=== PATIENT | female | born 1965 | race Caucasian/White ===

== ENCOUNTER → 2021-09-09 | Outpatient (CLI) | payer OTHER ==
[~2021-09-09] MED LIST: ADULT LOW DOSE81 MG; FIORICET 50-321 EACH PO; NORCO 5-325 TA1 EACH PO; ZOFRAN4 MG PO
== END ==
LOC: M.CT 14:05
PROVIDERS: ATTEND Nurse Practitioner
DX: Z13.6 Encounter for screening for cardiovascular disorders (principal); I25.10 Atherosclerotic heart disease of native coronary artery without angina pectoris

== ENCOUNTER → 2021-09-09 | Outpatient (CLI) | payer OTHER ==
--- NOTE | 2021-09-10 16:07 | TST ---
[place] [address] [employer] STRESS TEST Name: REINALDO FREEMAN Room: [facility]#: [id number] Admission: 09/09/21 Attend Phys: Seble Whitman Discharge: Date of : 69 Date of Service: 09/09/21 1517 Report #: [id number] THIS REPORT FOR: cc: Seble Phillips Jacqueline D. FNP Liston, Michael J. MD [facility] ~ cc: JASMIN Worthington, Marco Busby MD [facility] DATE OF SERVICE: 09/09/2021 STANDARD ANDREI PROTOCOL EXERCISE STRESS TEST REFERRING PHYSICIAN: Marco Busby MD [facility] PRIMARY CARE PROVIDER: JASMIN Worthington INDICATION: Chest pain, fatigue, palpitations and hypothyroidism. CARDIAC RISK FACTORS: Age 55 and family history of coronary artery disease. CARDIAC MEDICATIONS: None. The patient exercised per standard Andrei protocol for a total of 10 minutes and 20 seconds, achieving 101% of the age-predicted maximum heart rate and an energy expenditure of 12.33 METS. The patient denied any significant chest discomfort with exercise. Exercise was discontinued due to achievement of target heart rate. The resting heart rate was 76 beats per minute with a resting blood pressure of 108/78 mmHg. At peak exercise, the heart rate was 169 beats per minute with a peak stress blood pressure of 143/58 mmHg. In recovery, the heart rate was 102 beats per minute with a recovery blood pressure of 112/65 mmHg. The baseline 12-lead EKG shows sinus rhythm without significant ST segment or T-wave abnormality. At the beginning of exercise, the patient exhibited T-wave flattening and ultimately T-wave inversion with [address] segment depression noted in the anterolateral and inferior leads. At peak exercise, the patient has T-wave flattening and very subtle horizontal to downsloping ST segment depression in the anterolateral leads. During recovery, the patient developed more profound T-wave inversion diffusely with [address] segment depression that persisted 7 minutes into recovery. IMPRESSION: 1. Clinical response, nonischemic. The patient exhibited good exercise tolerance. 2. EKG response, appears ischemic. This [place] [address] [employer] STRESS TEST Name: REINALDO FREEMAN Room: [facility]#: [id number] Admission: 09/09/21 Attend Phys: Seble Whitman Discharge: Date of : 69 Date of Service: 09/09/21 1517 Report #: [id number] Consider additional stress testing with alternate imaging modality if clinically indicated. <ELECTRONICALLY SIGNED> By: Estiven Smallwood MD, [facility] 09/10/21 1607 1517 [id number] Estiven Smallwood MD, FACC /nt
== END ==
LOC: M.CRD 14:17
PROVIDERS: ATTEND Nurse Practitioner
DX: R07.89 Other chest pain (principal); E78.5 Hyperlipidemia, unspecified; Z82.49 Family history of ischemic heart disease and other diseases of the circulatory system

== ENCOUNTER → 2021-10-12 | Outpatient (CLI) | payer OTHER ==
[~2021-10-12] VITALS: Ht 157.5 cm; Wt 61.2 kg
[~2021-10-12] MED LIST changes: +LEVO-T75 MCG PO; +VITAMIN B-3 PO
[2021-10-12 08:09] LABS: CREATININE 0.8 mg/dL (0.6-1.3)
[2021-10-12 08:20] VITALS: BP 129/69
[2021-10-12 08:32] VITALS: BP 126/63
[2021-10-12 08:45] VITALS: BP 117/65
[2021-10-12 09:00] VITALS: BP 115/65
[2021-10-12 09:30] VITALS: BP 108/61
[2021-10-12 10:04] VITALS: BP 106/59
== END ==
LOC: M.LAB 09-22 15:59 → M.CT 10-04 08:00 → M.LAB 10-04 08:30 → M.RAD 07:31 → M.LAB 08:00
PROVIDERS: ATTEND Internal Medicine
DX: Z01.812 Encounter for preprocedural laboratory examination (principal); Z12.31 Encounter for screening mammogram for malignant neoplasm of breast; I25.10 Atherosclerotic heart disease of native coronary artery without angina pectoris; N64.59 Other signs and symptoms in breast; R94.39 Abnormal result of other cardiovascular function study